=== PATIENT | female | born 1985 | race Caucasian/White ===

== ENCOUNTER 2018-03-02 08:19 | Emergency (ER) | payer OTHER ==
[2018-03-02 08:33] VITALS: TEMP 97.4; BMI 54.8
--- NOTE | 2018-03-02 08:35 | PDOC ---
Attending Attestation - Resident Resident Name: Garrison Calvo - ED Attending Attestation I have performed the following: I have examined & evaluated the patient, The case was reviewed & discussed with the resident, I agree w/resident's findings & plan, Exceptions are as noted Heart Score/ECG Review - ECG Impressions Comment:: EKG read 08:31- NSR 89 bpm, no acute ST/T changes
--- NOTE | 2018-03-02 08:35 | PDOC ---
History of Present Illness - General History Source: Patient Exam Limitations: No Limitations - History of Present Illness Initial Comments: CHIEF COMPLAINT: 32 y/o afebrile, morbidly obese female, with PMH poorly controlled DM2 and asthma c/o dizziness and tingling while at work with a sugar > 400. HISTORY OF PRESENT ILLNESS: The patient admits she takes her metformin but has a terrible diet. Her blood sugars are normally in the low 200s but last night while at work she began feeling dizzy and her sugar was >400. She also admits to her hands and feet feeling numb/tingling for the past few months and cannot correlate the feeling to spikes in sugar. She denies f/c, n/v/d, CP, SOB, cough , hemoptysis, abd pain, back pain, hematuria, dysuria. She does admit to frequent yeast infections. PCP is Dr. Escalante. Vital signs on arrival are within normal limits. REVIEW OF SYSTEMS: GENERAL/CONSTITUTIONAL: No fever/chills. No weakness. No weight change. HEAD, EYES, EARS, NOSE AND THROAT: No change in vision. No ear pain or discharge. No sore throat. CARDIOVASCULAR: No chest pain or shortness of breath. RESPIRATORY: No cough, wheezing, or hemoptysis. GASTROINTESTINAL: No abd pain, nausea, vomiting, diarrhea. GENITOURINARY: No dysuria, frequency, or change in urination. MUSCULOSKELETAL: No joint or muscle swelling or pain. No neck or back pain. SKIN: No rash or easy bruising. NEUROLOGIC: +dizziness. +tingling in extremities. No headache, loss of consciousness or loss of sensation. PHYSICAL EXAM: GENERAL: The patient is awake, alert, and fully oriented, in no acute distress. She is anxious and emotional, admitting she does not take care of herself. Otherwise appears well. HEAD: Normal with no signs of trauma. ENT: Pupils equal, round and reactive to light, extraocular movements intact, sclera anicteric, conjunctiva clear. Neck supple. LUNGS: Clear to auscultation bilaterally. Normal excursion. No respiratory distress or use of accessory muscles. CV: RRR, S1/S2, no MRG. Cap refill < 2 sec. ABDOMEN: Soft, non-distended, non-tender even to deep palpation, no hepatomegaly or splenomegaly, no masses. EXTREMITIES: Normal range of motion, no edema. NEUROLOGICAL: Normal speech, normal gait. CN II-XII grossly intact. Motor and sensory equal and intact b/l UEs and LEs. No saddle anesthesia. PSYCH: Normal mood, normal affect. SKIN: Warm, dry, normal turgor, no rashes or lesions noted. <Sharri Jarquin - Last Filed: 03/02/18 10:28> <Julia Espinosa - Last Filed: 03/03/18 11:26> - General Chief Complaint: Blood Sugar Problem Stated Complaint: SUAGR PROBLEM,RT SIDE PAIN Time Seen by Provider: 03/02/18 08:27 Past History - Past Medical History Asthma: Yes Diabetes: Yes - Reproductive History Cervical CA: No Dysfunctional Uterine Bleeding: No Ectopic : No Endometrial CA: No Polycystic Ovaries: No - Immunization History Td Vaccination: No - Suicide/Smoking/Psychosocial Hx Smoking Status: No Smoking History: Never smoked Have you smoked in the past 12 months: No Number of Cigarettes Smoked Daily: 0 Hx Alcohol Use: No Drug/Substance Use Hx: No Substance Use Type: None <Sharri Jarquin - Last Filed: 03/02/18 10:28> <Julia Espinosa - Last Filed: 03/03/18 11:26> - Past Medical History Allergies/Adverse Reactions: Allergies Allergy/AdvReac Type Severity Reaction Status Date / Time amoxicillin Allergy Verified 03/02/18 08:33 Penicillins Allergy Hives Verified 03/02/18 08:33 Sulfa (Sulfonamide Allergy Hives Verified 03/02/18 08:33 Antibiotics) Home Medications: Ambulatory Orders Metformin HCl [Metformin HCl ER] 500 mg PO BID 05/20/16 Nitrofurantoin Monohyd/M-Cryst [Macrobid -] 100 mg PO BID #14 capsule 03/02/18 *Physical Exam - Vital Signs Last Vital Signs Temp Pulse Resp BP Pulse Ox 97.4 F L 89 20 120/68 99 03/02/18 08:28 03/02/18 10:43 03/02/18 10:43 03/02/18 10:43 03/02/18 10:43 <Julia Espinosa - Last Filed: 03/03/18 11:26> Heart Score/ECG Review - ECG Intrepretation Comment:: Twelve-lead EKG was performed and reviewed by Dr. Espinosa. There is normal sinus rhythm with a normal rate. The axis is normal. The intervals are normal. There are no ST or T wave abnormalities. Impression: Normal twelve-lead EKG <Sharri Jarquin - Last Filed: 03/02/18 10:28> ED Treatment Course - LABORATORY CBC & Chemistry Diagram: 03/02/18 08:42 03/02/18 08:42 <Sharri Jarquin - Last Filed: 03/02/18 10:28> - LABORATORY CBC & Chemistry Diagram: 03/02/18 08:42 03/02/18 08:42 - ADDITIONAL ORDERS Additional order review: 03/02/18 08:42 Urine Culture - Final Urine - Urine Clean Catch Contaminated: Please Repeat 03/02/18 08:42 RBC 5.30 H MCV 82.0 MCHC 33.3 RDW 13.8 D MPV 7.5 Neutrophils % 68.4 Lymphocytes % 23.0 D Monocytes % 6.4 Eosinophils % 1.7 Basophils % 0.5 - Medications Given in the ED: ED Medications Discontinued Medications Generic Name Dose Route Start Last Admin Trade Name Freq PRN Reason Stop Dose Admin Sodium Chloride 1,000 mls @ 1,000 mls/hr 03/02/18 09:49 03/02/18 10:36 Normal Saline - IV 03/02/18 10:48 1,000 mls/hr ASDIR STA Administration <Julia Espinosa - Last Filed: 03/03/18 11:26> Medical Decision Making - Medical Decision Making A/P: 32 y/o female with dizziness overnight with sugar of 400. Plan is as follows: 1. EKG 2. Labs 3. UA/culture EKG normal Labs unremarkable UA with 3+ leuks. Will send rx for macrobid. Suspect patient's tingling in extremities is early neuropathy secondary to persistent elevated sugar levels >200. Discussed all results with the patient. She is no longer dizzy. Had a lengthy discussion about PCP follow up, diet improvement and general better control of her diabetes. Discussed all usp effects of elevated sugar levels. Instructed patient to return to the ER with any worsening or concerning symptoms. The patient verbalizes understanding of all instructions, has no further questions and is awaiting discharge. <Sharri Jarquin - Last Filed: 03/02/18 10:28> *DC/Admit/Observation/Transfer <Sharri Jarquin - Last Filed: 03/02/18 10:28> - Attestations Physician Attestion: I reviewed the case with the mid-level practitioner and agree with the mid- level practitioner's assessment, diagnosis and disposition. <JesúsRamaJulia - Last Filed: 03/03/18 11:26> Diagnosis at time of Disposition: Neuropathy, Elevated glucose level UTI (urinary tract infection) Qualifiers: Urinary tract infection type: acute cystitis Hematuria presence: without hematuria Qualified Code(s): N30.00 - Acute cystitis without hematuria - Discharge Dispostion Disposition: HOME Condition at time of disposition: Improved - Prescriptions Prescriptions: Nitrofurantoin Monohyd/M-Cryst [Macrobid -] 100 mg PO BID #14 capsule - Referrals Referrals: Mary Peters MD [Primary Care Provider] - (Call today) - Patient Instructions Printed Discharge Instructions: DI for Urinary Tract Infection (UTI), DI for Diabetic Neuropathy, DI for Hyperglycemia -- Adult Additional Instructions: Discharge instructions: -A prescription has been sent to your pharmacy -Please call your doctor today to schedule follow up appointment -Return to the ER immediately with any worsening or concerning symptoms - Post Discharge Activity Forms/Work/School Notes: Back to Work
[2018-03-02 09:20] LABS: URINE APPEARANCE CLOUDY; URINE BILIRUBIN NEGATIVE (<2.0 mg/dL); URINE COLOR LTYELLOW; URINE GLUCOSE (UA) NEGATIVE (NEGATIVE); URINE KETONE NEGATIVE (NEGATIVE); URINE NITRITE NEGATIVE (NEGATIVE); URINE PROTEIN NEGATIVE (NEGATIVE); URINE UROBILINOGEN NEGATIVE mg/dL (0.2-1.0)
[2018-03-02 09:24] LABS: URINE LEUK ESTERASE 3+ (NEGATIVE)
[2018-03-02 09:25] LABS: BASO % 0.5 % (0-2.0); EOS % 1.7 % (0-4.5); HEMATOCRIT 43.5 % (32.4-45.2); HEMOGLOBIN 14.5 GM/dL (10.7-15.3); MCH 27.3 pg (25.7-33.7); MCHC 33.3 g/dl (32.0-36.0); MEAN PLT VOLUME 7.5 fl (7.5-11.1); MONO % 6.4 % (3.8-10.2); NEUT % 68.4 % (42.8-82.8); PLATELET COUNT 338 K/MM3 (134-434); RDW 13.8 % (11.6-15.6); WHITE BLOOD COUNT 10.5 K/mm3 (4.0-10.0)
[2018-03-02 09:30] LABS: ALBUMIN 4.1 g/dl (3.4-5.0); ANION GAP 11 (8-16); BILIRUBIN,TOTAL 0.5 mg/dL (0.2-1.0); BLOOD UREA NITROGEN 12 mg/dL (7-18); CALCIUM 9.2 mg/dL (8.5-10.1); CHLORIDE 103 mmol/L (98-107); CO2 25 mmol/L (21-32); CREATININE 0.7 mg/dL (0.55-1.02); GLUCOSE,RANDOM 116 mg/dL (74-106); MAGNESIUM 2.1 mg/dL (1.8-2.4); POTASSIUM 4.3 mmol/L (3.5-5.1); SGOT/AST 20 U/L (15-37); SGPT/ALT 41 U/L (12-78); SODIUM 139 mmol/L (136-145); TOT PROT 7.9 g/dl (6.4-8.2)
[2018-03-02 09:33] LABS: ALK PHOS 99 U/L (45-117)
[2018-03-02 09:43] LABS: EPI CELLS MANY /HPF (FEW); URINE MUCUS RARE
[2018-03-02] MEDS ORDERED: SODIUM CHLORIDE 1,000 ML IV STA (09:49)
[2018-03-02 10:45] VITALS: BP 120/68; PULSE 89
--- NOTE | 2018-03-04 09:22 | EKG ---
Test Reason : Blood Pressure : / mmHG Vent. Rate : 089 BPM Atrial Rate : 089 BPM P-R Int : 156 ms QRS Dur : 086 ms QT Int : 392 ms P-R-T Axes : 014 029 010 degrees QTc Int : 476 ms NORMAL SINUS RHYTHM NORMAL ECG WHEN COMPARED WITH ECG OF 27-DEC-2010 09:16, NO SIGNIFICANT CHANGE WAS FOUND Confirmed by CHRISTOPHER XIAO MD ([id number]) on 03/04/2018 9:21:55 AM Referred By: Confirmed By:CHRISTOPHER XIAO MD
== END 2018-03-02 10:44 | disposition home or self-care (01) ==
LOC: JER 08:19
PROC: 3E0337Z Introduction of Electrolytic and Water Balance Substance into Peripheral Vein, Percutaneous Approach (ICD-10-PCS; principal; 2018-03-02)
DX: N30.00 Acute cystitis without hematuria (principal)
CPT/HCPCS: 36415; 80053; 81003; 81015; 82550; 83735; 84484; 84703; 85025; 87086; 93005; 93010; 96360; 99283-25; J7030

== ENCOUNTER 2018-03-30 19:31 | Emergency (ER) | payer OTHER ==
[2018-03-30 19:39] VITALS: TEMP 98.4; BMI 53.1
--- NOTE | 2018-03-30 19:39 | PDOC ---
Rapid Medical Evaluation Medical Evaluation: Allergies Allergy/AdvReac Type Severity Reaction Status Date / Time amoxicillin Allergy Verified 03/02/18 08:33 Penicillins Allergy Hives Verified 03/02/18 08:33 Sulfa (Sulfonamide Allergy Hives Verified 03/02/18 08:33 Antibiotics) 03/30/18 19:34 I have performed a brief in-person evaluation of the patient. The patient presents with a chief complaints of right sided chest pain and dizziness since today Also reports shortness of breath and elevated blood glucose Pertinent physical exam findings: NAD unlabored breathing heart s1s2 I have ordered the following: ekg, labs The patient will proceed to the ED for further evaluation. <Lyubov Dsouza - Last Filed: 03/30/18 19:34> Medical Evaluation: Allergies Allergy/AdvReac Type Severity Reaction Status Date / Time amoxicillin Allergy Verified 03/02/18 08:33 Penicillins Allergy Hives Verified 03/02/18 08:33 Sulfa (Sulfonamide Allergy Hives Verified 03/02/18 08:33 Antibiotics) Vital Signs Temp Pulse Resp BP Pulse Ox 98.4 F 89 18 119/70 99 03/30/18 19:34 03/30/18 20:52 03/30/18 20:52 03/30/18 20:52 03/30/18 20:52 <Eva Moss - Last Filed: 03/30/18 21:22> Chief Complaint: Chest Pain Time Seen by Provider: 03/30/18 19:34
[2018-03-30 20:03] LABS: BASO % 0.9 % (0-2.0); EOS % 2.4 % (0-4.5); HEMATOCRIT 40.3 % (32.4-45.2); HEMOGLOBIN 13.6 GM/dL (10.7-15.3); LYMPH % 30.3 % (8-40); MCH 27.8 pg (25.7-33.7); MCHC 33.8 g/dl (32.0-36.0); MEAN CELL VOLUME 82.2 fl (80-96); MEAN PLT VOLUME 7.7 fl (7.5-11.1); MONO % 8.3 % (3.8-10.2); NEUT % 58.1 % (42.8-82.8); PLATELET COUNT 318 K/MM3 (134-434); RBC 4.91 M/mm3 (3.60-5.2); RDW 13.8 % (11.6-15.6); WHITE BLOOD COUNT 9.6 K/mm3 (4.0-10.0)
[2018-03-30 20:11] LABS: PROTHROMBIN TIME (PATIENT) 11.3 SEC (9.7-13.0)
[2018-03-30 20:14] LABS: ACTIVATED PTT 31.3 SECONDS (26.9-34.4)
[2018-03-30 20:25] LABS: URINE APPEARANCE CLEAR; URINE BILIRUBIN NEGATIVE (<2.0 mg/dL); URINE COLOR STRAW; URINE GLUCOSE (UA) NEGATIVE (NEGATIVE); URINE KETONE NEGATIVE (NEGATIVE); URINE LEUK ESTERASE NEGATIVE (NEGATIVE); URINE NITRITE NEGATIVE (NEGATIVE); URINE PROTEIN NEGATIVE (NEGATIVE); URINE UROBILINOGEN NEGATIVE mg/dL (0.2-1.0)
[2018-03-30 20:33] LABS: ALBUMIN 3.7 g/dl (3.4-5.0); ALK PHOS 87 U/L (45-117); ANION GAP 5 (8-16); BILIRUBIN,TOTAL 0.3 mg/dL (0.2-1.0); BLOOD UREA NITROGEN 14 mg/dL (7-18); CALCIUM 8.6 mg/dL (8.5-10.1); CHLORIDE 107 mmol/L (98-107); CO2 28 mmol/L (21-32); CREATININE 0.6 mg/dL (0.55-1.02); GLUCOSE,RANDOM 124 mg/dL (74-106); SGOT/AST 18 U/L (15-37); SGPT/ALT 37 U/L (12-78); SODIUM 140 mmol/L (136-145); TOT PROT 7.2 g/dl (6.4-8.2)
[2018-03-30 20:52] VITALS: BP 119/70; PULSE 89
[2018-03-30] MEDS ORDERED: SODIUM CHLORIDE 0.9% 500 ML INFUS.BAG IV ONE ×2 (21:09→21:47)
--- NOTE | 2018-03-30 21:22 | PDOC ---
History of Present Illness - General Chief Complaint: Chest Pain Stated Complaint: FATIGUE Time Seen by Provider: 03/30/18 19:34 Past History - Past Medical History Allergies/Adverse Reactions: Allergies Allergy/AdvReac Type Severity Reaction Status Date / Time amoxicillin Allergy Verified 03/02/18 08:33 Penicillins Allergy Hives Verified 03/02/18 08:33 Sulfa (Sulfonamide Allergy Hives Verified 03/02/18 08:33 Antibiotics) Home Medications: Ambulatory Orders Metformin HCl [Metformin HCl ER] 500 mg PO BID 05/20/16 Nitrofurantoin Monohyd/M-Cryst [Macrobid -] 100 mg PO BID #14 capsule 03/02/18 Asthma: Yes COPD: No Diabetes: Yes - Reproductive History Cervical CA: No Dysfunctional Uterine Bleeding: No Ectopic : No Endometrial CA: No Polycystic Ovaries: No - Immunization History Td Vaccination: No - Suicide/Smoking/Psychosocial Hx Smoking Status: No Smoking History: Never smoked Have you smoked in the past 12 months: No Number of Cigarettes Smoked Daily: 0 Hx Alcohol Use: No Drug/Substance Use Hx: No Substance Use Type: None *Physical Exam - Vital Signs Last Vital Signs Temp Pulse Resp BP Pulse Ox 98.4 F 89 18 119/70 99 03/30/18 19:34 03/30/18 20:52 03/30/18 20:52 03/30/18 20:52 03/30/18 20:52 ED Treatment Course - LABORATORY CBC & Chemistry Diagram: 03/30/18 19:50 03/30/18 19:50 - ADDITIONAL ORDERS Additional order review: Laboratory Results 03/30/18 03/30/18 03/30/18 20:49 19:50 19:50 PT with INR 11.30 INR 1.00 PTT (Actin FS) 31.3 Sodium 140 Potassium 4.0 Chloride 107 Carbon Dioxide 28 Anion Gap 5 L BUN 14 Creatinine 0.6 Creat Clearance w eGFR > 60 POC Glucometer 137.00299 Random Glucose 124 H Calcium 8.6 Total Bilirubin 0.3 D AST 18 ALT 37 Alkaline Phosphatase 87 Total Protein 7.2 Albumin 3.7 03/30/18 03/30/18 20:49 19:50 RBC 4.91 MCV 82.2 MCHC 33.8 RDW 13.8 MPV 7.7 Neutrophils % 58.1 Lymphocytes % 30.3 D Monocytes % 8.3 Eosinophils % 2.4 Basophils % 0.9 POC Glucometer 137.62761 - Medications Given in the ED: ED Medications Discontinued Medications Generic Name Dose Route Start Last Admin Trade Name Vik PRN Reason Stop Dose Admin Sodium Chloride 1,000 ml 03/30/18 21:09 03/30/18 21:12 Normal Saline - IV 03/30/18 21:10 1,000 ml ONCE ONE Administration Medical Decision Making - Medical Decision Making 03/30/18 21:35 Pt comes with right sided chest pain. She states that she has had poorly controlled blood sugars despite compliance with her glucophage 500 BID. We discussed the possibility that she needs to up her dose of meds. Pt's blood sugar is controlled in the ER today. 137 FS and 124 blood test. 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 States that she recently had diarrhea and nausea. Likely with viral gastroenteritis. Viral illness likely bumped up her glc. Pt is also morbidly obese and we discussed the need for her to get on an exercise regimen and to eat more veggies and less cheese. Labs are normal. Exam normal. EKG normal. We will not send off cardiac enzymes, as her CP is right sided and atypical. Pt has no CP at this time. She was advised to return for cardiac enzymes if she develops chest pain. Pt states that she will follow with her PMD next week. *DC/Admit/Observation/Transfer Diagnosis at time of Disposition: Atypical chest pain, Diabetes mellitus out of control - Discharge Dispostion Disposition: HOME Condition at time of disposition: Stable Admit: No - Referrals - Patient Instructions Printed Discharge Instructions: Eating a Diet Low in Saturated Fat, Trans Fat, and Cholesterol, Do Raw Food (Living Food) Diets Promote Good Health?, DI for Atypical Chest Pain, Regular Moderate to Vigorous Exercise Associated With Decreased Risk of Par - Post Discharge Activity Forms/Work/School Notes: Back to Work
--- NOTE | 2018-03-30 22:05 | PDOC ---
*Physical Exam - Vital Signs Last Vital Signs Temp Pulse Resp BP Pulse Ox 98.4 F 89 18 119/70 99 03/30/18 19:34 03/30/18 20:52 03/30/18 20:52 03/30/18 20:52 03/30/18 20:52 - Physical Exam Comments: 03/30/18 22:05 Patient is a 32 year old female with a significant past medical history of poorly controlled DM2 and asthma who presents to the ED with complaints of general fatigue that began 1 hour prior to ED arrival. Patient reports experiencing general fatigue with associated dizziness, nausea, and diarrhea this evening at 6pm. She reports checking her blood sugar at 6pm stating it was found to be at 272 which she states worried her, prompting her to come into the ED for further evaluation. Patient reports blood sugar has been reportedly high for the last few weeks, stating she has recently been compliant with her diabetic medication. Patient reports experiencing intermittent chest pain as well as right sided pins and needles. Denies fever, chills. Denies vomiting. Denies constipation, dysuria, hematuria. Denies out of state travelling. Denies any other symptoms. 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 Lives with son, No smoking. No alcohol. No illicit drugs. Surgical history: None PMD: Dr. Matias ADULT ROS GENERAL/CONSTITUTIONAL: +Fatigue No fever or chills. HEAD, EYES, EARS, NOSE AND THROAT: No change in vision. No ear pain or discharge. No sore throat. CARDIOVASCULAR: +Chest pain. No shortness of breath. RESPIRATORY: No cough, wheezing, or hemoptysis. GASTROINTESTINAL: +Nausea. +diarrhea., No vomiting, or constipation. GENITOURINARY: No dysuria, frequency, or change in urination. MUSCULOSKELETAL: No joint or muscle swelling or pain. No neck or back pain. SKIN: No rash NEUROLOGIC: No headache, vertigo, loss of consciousness, or change in strength/ sensation. ENDOCRINE: No increased thirst. No abnormal weight change. HEMATOLOGIC/LYMPHATIC: No anemia, easy bleeding, or history of blood clots. ALLERGIC/IMMUNOLOGIC: No hives or skin allergy. ADULT EXAM GENERAL: Awake, alert, and fully oriented, in no acute distress HEAD: No signs of trauma EYES: PERRLA, EOMI, sclera anicteric, conjunctiva clear ENT: Auricles normal inspection, hearing grossly normal, nares patent, oropharynx clear without exudates. Moist mucosa NECK: Normal ROM, supple, no lymphadenopathy, JVD, or masses LUNGS: Breath sounds equal, clear to auscultation bilaterally. No wheezes, and no crackles HEART: Regular rate and rhythm, normal S1 and S2, no murmurs, rubs or gallops ABDOMEN: Soft, nontender, normoactive bowel sounds. No guarding, no rebound. No masses EXTREMITIES: Normal range of motion, no edema. No clubbing or cyanosis. No cords, erythema, or tenderness NEUROLOGICAL: Cranial nerves II through XII grossly intact. Normal speech, normal gait SKIN: Warm, Dry, normal turgor, no rashes or lesions noted. <Edvin Davis - Last Filed: 03/30/18 22:06> - Vital Signs Last Vital Signs Temp Pulse Resp BP Pulse Ox 98.4 F 89 18 119/70 99 03/30/18 19:34 03/30/18 20:52 03/30/18 20:52 03/30/18 20:52 03/30/18 20:52 <Eva Moss - Last Filed: 03/30/18 23:41> Heart Score/ECG Review - ECG Intrepretation Comment:: 03/30/18 22:06 Completed @19:38:48 normal Sinus rhythm Normal ECG vent. Rate 92 bpm NM interval 164 ms QRS duraion 82 ms <Edvin Davis - Last Filed: 03/30/18 22:06> ED Treatment Course - LABORATORY CBC & Chemistry Diagram: 03/30/18 19:50 03/30/18 19:50 - ADDITIONAL ORDERS Additional order review: Laboratory Results 03/30/18 03/30/18 03/30/18 20:49 20:17 19:50 PT with INR INR PTT (Actin FS) Sodium 140 Potassium 4.0 Chloride 107 Carbon Dioxide 28 Anion Gap 5 L BUN 14 Creatinine 0.6 Creat Clearance w eGFR > 60 POC Glucometer 137.38718 Random Glucose 124 H Calcium 8.6 Total Bilirubin 0.3 D AST 18 ALT 37 Alkaline Phosphatase 87 Total Protein 7.2 Albumin 3.7 Urine Color Straw Urine Appearance Clear Urine pH 6.0 Ur Specific [place] 1.010 Urine Protein Negative Urine Glucose (UA) Negative Urine Ketones Negative Urine Blood Negative Urine Nitrite Negative Urine Bilirubin Negative Urine Urobilinogen Negative Ur Leukocyte Esterase Negative 03/30/18 19:50 PT with INR 11.30 INR 1.00 PTT (Actin FS) 31.3 Sodium Potassium Chloride Carbon Dioxide Anion Gap BUN Creatinine Creat Clearance w eGFR POC Glucometer Random Glucose Calcium Total Bilirubin AST ALT Alkaline Phosphatase Total Protein Albumin Urine Color Urine Appearance Urine pH Ur Specific [place] Urine Protein Urine Glucose (UA) Urine Ketones Urine Blood Urine Nitrite Urine Bilirubin Urine Urobilinogen Ur Leukocyte Esterase 03/30/18 03/30/18 20:49 19:50 RBC 4.91 MCV 82.2 MCHC 33.8 RDW 13.8 MPV 7.7 Neutrophils % 58.1 Lymphocytes % 30.3 D Monocytes % 8.3 Eosinophils % 2.4 Basophils % 0.9 POC Glucometer 137.16897 - Medications Given in the ED: ED Medications Discontinued Medications Generic Name Dose Route Start Last Admin Trade Name Freq PRN Reason Stop Dose Admin Sodium Chloride 1,000 ml 03/30/18 21:09 03/30/18 21:12 Normal Saline - IV 03/30/18 21:10 1,000 ml ONCE ONE Administration Sodium Chloride 1,000 ml 03/30/18 21:47 03/30/18 21:57 Normal Saline - IV 03/30/18 21:48 Not Given ONCE ONE <Edvin Davis - Last Filed: 03/30/18 22:06> - LABORATORY CBC & Chemistry Diagram: 03/30/18 19:50 03/30/18 19:50 - ADDITIONAL ORDERS Additional order review: Laboratory Results 03/30/18 03/30/18 03/30/18 20:49 20:17 19:50 PT with INR INR PTT (Actin FS) Sodium 140 Potassium 4.0 Chloride 107 Carbon Dioxide 28 Anion Gap 5 L BUN 14 Creatinine 0.6 Creat Clearance w eGFR > 60 POC Glucometer 137.56474 Random Glucose 124 H Calcium 8.6 Total Bilirubin 0.3 D AST 18 ALT 37 Alkaline Phosphatase 87 Total Protein 7.2 Albumin 3.7 Urine Color Straw Urine Appearance Clear Urine pH 6.0 Ur Specific [place] 1.010 Urine Protein Negative Urine Glucose (UA) Negative Urine Ketones Negative Urine Blood Negative Urine Nitrite Negative Urine Bilirubin Negative Urine Urobilinogen Negative Ur Leukocyte Esterase Negative 03/30/18 19:50 PT with INR 11.30 INR 1.00 PTT (Actin FS) 31.3 Sodium Potassium Chloride Carbon Dioxide Anion Gap BUN Creatinine Creat Clearance w eGFR POC Glucometer Random Glucose Calcium Total Bilirubin AST ALT Alkaline Phosphatase Total Protein Albumin Urine Color Urine Appearance Urine pH Ur Specific [place] Urine Protein Urine Glucose (UA) Urine Ketones Urine Blood Urine Nitrite Urine Bilirubin Urine Urobilinogen Ur Leukocyte Esterase 03/30/18 03/30/18 20:49 19:50 RBC 4.91 MCV 82.2 MCHC 33.8 RDW 13.8 MPV 7.7 Neutrophils % 58.1 Lymphocytes % 30.3 D Monocytes % 8.3 Eosinophils % 2.4 Basophils % 0.9 POC Glucometer 137.18773 - Medications Given in the ED: ED Medications Discontinued Medications Generic Name Dose Route Start Last Admin Trade Name Freq PRN Reason Stop Dose Admin Sodium Chloride 1,000 ml 03/30/18 21:09 03/30/18 21:12 Normal Saline - IV 03/30/18 21:10 1,000 ml ONCE ONE Administration <Eva Moss - Last Filed: 03/30/18 23:41> Medical Decision Making - Medical Decision Making 03/30/18 22:31 Pt never left, as she was anxious and states that she still feels dizzy even though she refused NSS earlier, she is now agreeing to have 1L NSS. I will send off a cardiac panel at this time also. Pt will be reevaluated after the bolus. 03/30/18 23:41 Pt is feeling better with hydration and cardiac enzyme is normal. <Eva Moss - Last Filed: 03/30/18 23:41> *DC/Admit/Observation/Transfer - Attestations Scribe Attestion: 03/30/18 22:06 Documentation prepared by Edvin Davis, acting as medical case worker for Eva Moss MD/. <Edvin Davis - Last Filed: 03/30/18 22:06> <Eva Moss - Last Filed: 03/30/18 23:41> Diagnosis at time of Disposition: Atypical chest pain, Diabetes mellitus out of control - Discharge Dispostion Disposition: HOME Condition at time of disposition: Stable - Referrals - Patient Instructions Printed Discharge Instructions: Eating a Diet Low in Saturated Fat, Trans Fat, and Cholesterol, Do Raw Food (Living Food) Diets Promote Good Health?, DI for Atypical Chest Pain, Regular Moderate to Vigorous Exercise Associated With Decreased Risk of Par - Post Discharge Activity Forms/Work/School Notes: Back to Work
[2018-03-31 00:17] LABS: HCG,QUALITATIVE URINE NEGATIVE
--- NOTE | 2018-03-31 14:35 | EKG ---
Test Reason : Blood Pressure : / mmHG Vent. Rate : 092 BPM Atrial Rate : 092 BPM P-R Int : 164 ms QRS Dur : 082 ms QT Int : 376 ms P-R-T Axes : 018 018 016 degrees QTc Int : 464 ms NORMAL SINUS RHYTHM NORMAL ECG WHEN COMPARED WITH ECG OF 02-MAR-2018 08:26, NO SIGNIFICANT CHANGE WAS FOUND Confirmed by MD Buchanan Daniel ([id number]) on 03/31/2018 2:34:47 PM Referred By: Confirmed By:Elias Buchanan MD
== END 2018-03-31 00:06 | disposition home or self-care (01) ==
LOC: JER 19:31
PROC: 3E0337Z Introduction of Electrolytic and Water Balance Substance into Peripheral Vein, Percutaneous Approach (ICD-10-PCS; principal; 2018-03-30)
DX: E11.65 Type 2 diabetes mellitus with hyperglycemia (principal); Z79.84 Long term (current) use of oral hypoglycemic drugs; R07.89 Other chest pain; E66.01 Morbid (severe) obesity due to excess calories; Z68.43 Body mass index [BMI] 50.0-59.9, adult
CPT/HCPCS: 36415; 80053; 81003; 82550; 82962; 84484; 84703; 85025; 85610; 85730; 93005; 93010; 96374; 99283-25

== ENCOUNTER 2018-03-31 13:00 | Emergency (ER) | payer OTHER ==
[2018-03-31 13:10] VITALS: BMI 55.7
[2018-03-31] MEDS ORDERED: HEMOQUE TEST 1 EACH EACH ONE (13:44)
[2018-03-31] MEDS ORDERED: ACETAMINOPHEN 500 MG TABLET (FP) PO ONE (13:48)
[2018-03-31 14:04] LABS: BASO % 0.8 % (0-2.0); EOS % 2.1 % (0-4.5); HEMATOCRIT 41.8 % (32.4-45.2); HEMOGLOBIN 14.1 GM/dL (10.7-15.3); LYMPH % 27.8 % (8-40); MCH 27.7 pg (25.7-33.7); MCHC 33.7 g/dl (32.0-36.0); MEAN CELL VOLUME 82.3 fl (80-96); MEAN PLT VOLUME 7.4 fl (7.5-11.1); MONO % 7.5 % (3.8-10.2); NEUT % 61.8 % (42.8-82.8); PLATELET COUNT 325 K/MM3 (134-434); RBC 5.08 M/mm3 (3.60-5.2); WHITE BLOOD COUNT 9.1 K/mm3 (4.0-10.0)
[2018-03-31] MEDS ORDERED: ACETAMINOPHEN 325 MG TABLET (FP) ONE (14:07)
[2018-03-31 14:09] LABS: VENOUS PC02 45.8 mmHg (38-52); VENOUS PH 7.38 (7.32-7.42)
[2018-03-31 14:10] LABS: VENOUS PO2 39.9 mmHg (28-48)
[2018-03-31 14:29] LABS: ALBUMIN 4.1 g/dl (3.4-5.0); ANION GAP 8 (8-16); BILIRUBIN,TOTAL 0.5 mg/dL (0.2-1.0); BLOOD UREA NITROGEN 12 mg/dL (7-18); CHLORIDE 105 mmol/L (98-107); CO2 27 mmol/L (21-32); CREATININE 0.6 mg/dL (0.55-1.02); GLUCOSE,RANDOM 90 mg/dL (74-106); POTASSIUM 4.1 mmol/L (3.5-5.1); SGOT/AST 22 U/L (15-37); SGPT/ALT 41 U/L (12-78); SODIUM 140 mmol/L (136-145); TOT PROT 7.7 g/dl (6.4-8.2)
[2018-03-31 14:30] LABS: ALK PHOS 89 U/L (45-117)
--- NOTE | 2018-03-31 14:31 | EKG ---
Test Reason : Blood Pressure : / mmHG Vent. Rate : 088 BPM Atrial Rate : 088 BPM P-R Int : 166 ms QRS Dur : 084 ms QT Int : 384 ms P-R-T Axes : 018 027 014 degrees QTc Int : 464 ms NORMAL SINUS RHYTHM NORMAL ECG WHEN COMPARED WITH ECG OF 30-MAR-2018 19:38, NO SIGNIFICANT CHANGE WAS FOUND Confirmed by MD Buchanan Daniel ([id number]) on 03/31/2018 2:30:57 PM Referred By: Confirmed By:Elias Buchanan MD
[2018-03-31 15:14] LABS: ACETONE SERUM NEGATIVE (NEGATIVE)
--- NOTE | 2018-03-31 16:22 | PDOC ---
History of Present Illness - General Chief Complaint: Blood Sugar Problem Stated Complaint: DIZZINESS, CHEST PRESSURE Time Seen by Provider: 03/31/18 13:34 History Source: Patient Exam Limitations: No Limitations - History of Present Illness Initial Comments: 03/31/18 16:17 32 yr old female with history of diabetes presents to the ED with complaints of chest discomfort worsened with movement and deep breathing. Patient states symptoms began a few days ago which prompted her to come to the ER yesterday and was told to follow up with her primary care doctor as this was not related to her heart. Patient also states her sugar this morning was 206 despite eating nothing and taking her medication. Patient has no complaints of fever, chills, urinary complaints, polyuria polyphasia or polydipsia. Timing/Duration: intermittent Severity: moderate Associated Symptoms: reports: chest pain Past History - Travel Traveled outside of the country in the last 30 days: No - Past Medical History Allergies/Adverse Reactions: Allergies Allergy/AdvReac Type Severity Reaction Status Date / Time amoxicillin Allergy Verified 03/31/18 13:10 Penicillins Allergy Hives Verified 03/31/18 13:10 Sulfa (Sulfonamide Allergy Hives Verified 03/31/18 13:10 Antibiotics) Home Medications: Ambulatory Orders Metformin HCl [Metformin HCl ER] 500 mg PO BID 05/20/16 Nitrofurantoin Monohyd/M-Cryst [Macrobid -] 100 mg PO BID #14 capsule 03/02/18 Asthma: Yes COPD: No Diabetes: Yes - Reproductive History Cervical CA: No Dysfunctional Uterine Bleeding: No Ectopic : No Endometrial CA: No Polycystic Ovaries: No - Immunization History Td Vaccination: No - Suicide/Smoking/Psychosocial Hx Smoking Status: No Smoking History: Never smoked Have you smoked in the past 12 months: No Number of Cigarettes Smoked Daily: 0 Hx Alcohol Use: No Drug/Substance Use Hx: No Substance Use Type: None Patient Lives Alone: No Review of Systems - Review of Systems Able to Perform ROS?: No Constitutional: No: Symptoms Reported HEENTM: No: Symptoms Reported Respiratory: No: Symptoms reported Cardiac (ROS): Yes: Chest Pain ABD/GI: No: Symptoms Reported : No: Symptoms Reported Musculoskeletal: No: Symptoms Reported Integumentary: No: Symptoms Reported Neurological: No: Symptoms reported Hematologic/Lymphatic: No: Symptoms Reported *Physical Exam - Vital Signs Last Vital Signs Temp Pulse Resp BP Pulse Ox 98 F 90 18 127/70 99 03/31/18 13:05 03/31/18 13:05 03/31/18 13:05 03/31/18 13:05 03/31/18 13:05 - Physical Exam General Appearance: Yes: Nourished, Appropriately Dressed. No: Apparent Distress HEENT: positive: EOMI, NITO, TMs Normal, Pharynx Normal. negative: Pale Conjunctivae Neck: positive: Normal Thyroid, Supple Respiratory/Chest: positive: Chest Tender (mid sternal and laterally bilateral) , Lungs Clear, Normal Breath Sounds. negative: Respiratory Distress, Accessory Muscle Use Cardiovascular: positive: Regular Rhythm, Regular Rate. negative: Murmur Gastrointestinal/Abdominal: positive: Soft. negative: Tenderness Extremity: positive: Normal Capillary Refill. negative: Pedal Edema Integumentary: positive: Normal Color, Warm, Moist Neurologic: positive: Motor Strength 5/5 (ambulatory) Heart Score/ECG Review - Electrocardiogram EKG: Normal - Age Age: </= 45 - Risk Factors Risk Factors Heart Score: Yes Hx Hypercholesterolemia, Yes Hx Diabetes Based on the list above the patient has:: 1-2 risk factors - ECG Intrepretation Rhythm: Regular Rhythm (Rate 88. Normal sinus rhythm. Intervals are regular. No ST elevation or depression.) ED Treatment Course - LABORATORY CBC & Chemistry Diagram: 03/31/18 13:55 03/31/18 13:57 - ADDITIONAL ORDERS Additional order review: Laboratory Results 03/31/18 03/31/18 03/31/18 13:57 13:57 13:55 VBG pH 7.38 POC VBG pCO2 45.8 POC VBG pO2 39.9 Mixed VBG HCO3 26.7 H Sodium 140 Potassium 4.1 Chloride 105 Carbon Dioxide 27 Anion Gap 8 BUN 12 Creatinine 0.6 Creat Clearance w eGFR > 60 POC Glucometer Random Glucose 90 Calcium 9.0 Total Bilirubin 0.5 D AST 22 ALT 41 Alkaline Phosphatase 89 Creatine Kinase 91 Troponin I < 0.02 Total Protein 7.7 Albumin 4.1 Acetone, Qual Negative L 03/31/18 13:52 VBG pH POC VBG pCO2 POC VBG pO2 Mixed VBG HCO3 Sodium Potassium Chloride Carbon Dioxide Anion Gap BUN Creatinine Creat Clearance w eGFR POC Glucometer 93.78906 Random Glucose Calcium Total Bilirubin AST ALT Alkaline Phosphatase Creatine Kinase Troponin I Total Protein Albumin Acetone, Qual 03/31/18 03/31/18 13:55 13:52 RBC 5.08 MCV 82.3 MCHC 33.7 RDW 14.0 MPV 7.4 L Neutrophils % 61.8 Lymphocytes % 27.8 Monocytes % 7.5 Eosinophils % 2.1 Basophils % 0.8 POC Glucometer 93.04076 - Medications Given in the ED: ED Medications Discontinued Medications Generic Name Dose Route Start Last Admin Trade Name Vik PRN Reason Stop Dose Admin Acetaminophen 975 mg 03/31/18 13:48 03/31/18 14:09 Tylenol - PO 03/31/18 13:49 975 mg ONCE ONE Administration Medical Decision Making - Medical Decision Making 03/31/18 14:25 Patient with intermittent bilateral chest pain worse with movement and deep breathing. Patient with history of diabetes is concerned why her sugar has been elevated. Patient tried contacting her PCP to discuss elevated sugar but states was told to come to the ER for further evaluation. Patient had reproducible chest pain concerning for costochondritis and musculoskeletal strain. Patient will have labs including one set of troponins done secondary to continual pain and previous visit yesterday. 03/31/18 16:26 Laboratory Tests 03/31/18 03/31/18 03/31/18 13:52 13:55 13:55 WBC 9.1 Hgb 14.1 Hct 41.8 Plt Count 325 Neutrophils % 61.8 Mixed VBG HCO3 26.7 H Sodium Potassium Chloride Carbon Dioxide BUN Creatinine POC Glucometer 93.47926 Random Glucose Calcium Total Bilirubin AST ALT Alkaline Phosphatase Troponin I Acetone, Qual 03/31/18 03/31/18 13:57 13:57 WBC Hgb Hct Plt Count Neutrophils % Mixed VBG HCO3 Sodium 140 Potassium 4.1 Chloride 105 Carbon Dioxide 27 BUN 12 Creatinine 0.6 POC Glucometer Random Glucose 90 Calcium 9.0 Total Bilirubin 0.5 D AST 22 ALT 41 Alkaline Phosphatase 89 Troponin I < 0.02 Acetone, Qual Negative L Pt asymptomatic after receiving Tylenol. Patient will be discharged home with recommendations to continue Tylenol and stop her primary care doctor regards to subjective *DC/Admit/Observation/Transfer Diagnosis at time of Disposition: Costochondritis - Discharge Dispostion Disposition: HOME Condition at time of disposition: Improved - Referrals Referrals: Huber Matias MD [Primary Care Provider] - - Patient Instructions Printed Discharge Instructions: DI for Costochondritis Additional Instructions: At this time I recommend taking Tylenol 975 every 6-8 hours for discomfort for the next few days. Please drink plenty of fluids in May apply warm compresses the secondary also to alleviate discomfort. In regards to elevated glucose patient is to follow up with her primary care physician. - Post Discharge Activity
[2018-03-31 17:11] VITALS: BP 125/68; PULSE 75; TEMP 98.3
== END 2018-03-31 16:43 | disposition home or self-care (01) ==
LOC: JER 13:00
DX: M94.0 Chondrocostal junction syndrome [Tietze] (principal)
CPT/HCPCS: 36415; 80053; 82009; 82550; 82803; 82962; 84484; 85025; 93005; 93010; 99284-25

== ENCOUNTER 2018-07-28 00:58 | Emergency (ER) | payer OTHER ==
--- NOTE | 2018-07-28 01:22 | PDOC ---
History of Present Illness - General History Source: Patient Exam Limitations: No Limitations - History of Present Illness Initial Comments: 07/28/18 02:13 The patient is a 32 year old female, with a significant past medical history of Asthma, HLD, Diabetes (not on medications), Morbid obesity, who presents to the emergency department with, 2 weeks of shortness of breath. As per patient, she attempted using her at home rescue inhaler, without relief. She also endorses an onset of burning chest pain, back pain, headache, and numbness. The patient was seen in [facility], [facility] ER, and [facility] ER multiple times for similar symptoms. She reports that [facility] diagnosed her with anxiety and has an upcoming appointment with a psychiatry. She denies recent fevers, chills, or dizziness. She denies recent nausea, vomit , diarrhea or constipation. She denies recent dysuria, frequency, urgency or hematuria. Allergies: Amoxicillin, Penicillins, Sulfa Past surgical history: None reported. Social history: Nonsmoker. Denies EtOH use and recreational drug use. Primary Care Physician: Dr. Huber Matias <Ana Urena - Last Filed: 07/28/18 02:39> <Eva Moss - Last Filed: 07/28/18 19:28> - General Stated Complaint: ABDOMINAL & CHEST PAINS Time Seen by Provider: 07/28/18 01:22 Past History <Ana Urena - Last Filed: 07/28/18 02:39> - Past Medical History Asthma: Yes COPD: No DVT: No Diabetes: Yes Hypercholesterolemia: Yes - Reproductive History Cervical CA: No Dysfunctional Uterine Bleeding: No Ectopic : No Endometrial CA: No Polycystic Ovaries: No - Immunization History Td Vaccination: No - Suicide/Smoking/Psychosocial Hx Smoking Status: No Smoking History: Never smoked Have you smoked in the past 12 months: No Number of Cigarettes Smoked Daily: 0 Hx Alcohol Use: No Drug/Substance Use Hx: No Substance Use Type: None <Eva Moss - Last Filed: 07/28/18 19:28> - Past Medical History Allergies/Adverse Reactions: Allergies Allergy/AdvReac Type Severity Reaction Status Date / Time amoxicillin Allergy Verified 07/28/18 01:38 Penicillins Allergy Hives Verified 07/28/18 01:38 Sulfa (Sulfonamide Allergy Hives Verified 07/28/18 01:38 Antibiotics) Home Medications: Ambulatory Orders Albuterol 0.083% Nebulizer Evelin [Ventolin 0.083% Nebulizer Soln -] 1 neb NEB Q4H PRN #30 vial 07/17/18 Methylprednisolone [Medrol Dose Milo] 4 mg PO ASDIR #21 tablet 07/17/18 Ipratropium 0.02% Nebulizer [Atrovent 0.02% Nebulizer -] 1 amp NEB QID PRN #1 vial 07/19/18 Loratadine 10 mg PO DAILY #10 capsule 07/19/18 Pantoprazole Sodium [Protonix -] 40 mg PO DAILY #7 tablet.ec 07/19/18 Review of Systems - Review of Systems Able to Perform ROS?: Yes Comments:: 07/28/18 02:14 GENERAL/CONSTITUTIONAL: No fever or chills. No weakness. HEAD, EYES, EARS, NOSE AND THROAT: No change in vision. No ear pain or discharge. No sore throat. +CARDIOVASCULAR: Chest pain. +RESPIRATORY: SOB. No cough, wheezing, or hemoptysis. GASTROINTESTINAL: No nausea, vomiting, diarrhea or constipation. GENITOURINARY: No dysuria, frequency, or change in urination. MUSCULOSKELETAL: No joint or muscle swelling or pain. No neck or back pain. SKIN: No rash +NEUROLOGIC: Headache. Numbness. No vertigo, loss of consciousness, or change in strength/sensation. ENDOCRINE: No increased thirst. No abnormal weight change. HEMATOLOGIC/LYMPHATIC: No anemia, easy bleeding, or history of blood clots. ALLERGIC/IMMUNOLOGIC: No hives or skin allergy. All Other Systems: Reviewed and Negative <Ana Urena - Last Filed: 07/28/18 02:39> *Physical Exam - Vital Signs Last Vital Signs Temp Pulse Resp BP Pulse Ox 97.4 F L 91 H 19 118/84 100 07/28/18 01:05 07/28/18 01:05 07/28/18 01:05 07/28/18 01:05 07/28/18 01:05 - Physical Exam Comments: 07/28/18 02:39 GENERAL: Awake, alert, and fully oriented, in no acute distress HEAD: No signs of trauma EYES: PERRLA, EOMI, sclera anicteric, conjunctiva clear ENT: Auricles normal inspection, hearing grossly normal, nares patent, oropharynx clear without exudates. Moist mucosa NECK: Normal ROM, supple, no lymphadenopathy, JVD, or masses LUNGS: Breath sounds equal, clear to auscultation bilaterally. No wheezes, and no crackles HEART: Regular rate and rhythm, normal S1 and S2, no murmurs, rubs or gallops ABDOMEN: Soft, nontender, normoactive bowel sounds. No guarding, no rebound. No masses EXTREMITIES: Normal range of motion, no edema. No clubbing or cyanosis. No cords, erythema, or tenderness NEUROLOGICAL: Cranial nerves II through XII grossly intact. Normal speech, normal gait SKIN: Warm, Dry, normal turgor, no rashes or lesions noted. <Ana Urena - Last Filed: 07/28/18 02:39> ED Treatment Course - LABORATORY CBC & Chemistry Diagram: 07/28/18 01:58 07/28/18 01:58 - ADDITIONAL ORDERS Additional order review: Laboratory Results 07/28/18 01:59 Urine HCG, Qual Negative <Ana Urena - Last Filed: 07/28/18 02:39> - LABORATORY CBC & Chemistry Diagram: 07/28/18 01:58 07/28/18 01:58 <Eva Moss - Last Filed: 07/28/18 19:28> Medical Decision Making - Medical Decision Making 07/28/18 02:24 CBC normal HCG negative Chem pending CXR pending 07/28/18 19:27 Pt with GERD and reflux. She has a normal EKG; CXR was cancelled, as she recently had a CT chest. Pt will be discharged. She has an outpatient GI f/u appy on . <Eva Moss - Last Filed: 07/28/18 19:28> *DC/Admit/Observation/Transfer - Attestations Scribe Attestion: 07/28/18 02:15 Documentation prepared by Ana Urena, acting as medical record coder for Eva Moss MD. <Ana Urena - Last Filed: 07/28/18 02:39> - Discharge Dispostion Decision to Admit order: No <Eva Moss - Last Filed: 07/28/18 19:28> Diagnosis at time of Disposition: Gastritis, Chest pain due to GERD - Discharge Dispostion Disposition: HOME Condition at time of disposition: Stable - Referrals Referrals: Huber Matias MD [Primary Care Provider] - - Patient Instructions Printed Discharge Instructions: DI for Gastritis, GERD Diet
[2018-07-28] MEDS ORDERED: SODIUM CHLORIDE 0.9% 500 ML INFUS.BAG IV ONE (01:38)
[2018-07-28 01:45] VITALS: BP 118/84; PULSE 91; TEMP 97.4; BMI 49.6
[2018-07-28 02:10] LABS: BASO % 0.9 % (0-2.0); EOS % 1.8 % (0-4.5); HEMATOCRIT 41.9 % (32.4-45.2); LYMPH % 29.6 % (8-40); MCH 27.4 pg (25.7-33.7); MCHC 33.4 g/dl (32.0-36.0); MEAN PLT VOLUME 7.9 fl (7.5-11.1); MONO % 9.6 % (3.8-10.2); NEUT % 58.1 % (42.8-82.8); PLATELET COUNT 274 K/MM3 (134-434); RBC 5.11 M/mm3 (3.60-5.2); RDW 14.1 % (11.6-15.6)
[2018-07-28] MEDS ORDERED: MAG HYDROX/AL HYDROX/SIMETH 30 ML UNIT-DOSE CUP PO ONE (02:38)
[2018-07-28] MEDS ORDERED: DICYCLOMINE HCL 20 MG TABLET PO ONE (02:38)
[2018-07-28 02:40] LABS: ALBUMIN 3.9 g/dl (3.4-5.0); ANION GAP 6 MMOL/L (8-16); BILIRUBIN,TOTAL 0.4 mg/dL (0.2-1.0); BLOOD UREA NITROGEN 10 mg/dL (7-18); CALCIUM 8.7 mg/dL (8.5-10.1); CHLORIDE 105 mmol/L (98-107); CO2 29 mmol/L (21-32); CREATININE 0.7 mg/dL (0.55-1.02); GLUCOSE,RANDOM 108 mg/dL (74-106); POTASSIUM 3.7 mmol/L (3.5-5.1); SGOT/AST 15 U/L (15-37); SGPT/ALT 47 U/L (12-78); SODIUM 140 mmol/L (136-145); TOT PROT 7.3 g/dl (6.4-8.2)
[2018-07-28 02:41] LABS: ALK PHOS 83 U/L (45-117)
[2018-07-28] MEDS ORDERED: DICYCLOMINE HCL 10 MG CAPSULE PO ONE (03:45)
--- NOTE | 2018-07-30 14:05 | EKG ---
Test Reason : Blood Pressure : / mmHG Vent. Rate : 079 BPM Atrial Rate : 079 BPM P-R Int : 172 ms QRS Dur : 088 ms QT Int : 408 ms P-R-T Axes : 029 008 009 degrees QTc Int : 467 ms NORMAL SINUS RHYTHM NORMAL ECG WHEN COMPARED WITH ECG OF 16-JUL-2018 18:50, NONSPECIFIC T WAVE ABNORMALITY NOW EVIDENT IN ANTERIOR LEADS Confirmed by KRISTOPHER PARR MD ([id number]) on 07/30/2018 2:05:17 PM Referred By: Confirmed By:KRISTOPHER PARR MD
== END 2018-07-28 03:35 | disposition home or self-care (01) ==
LOC: JER 00:58
DX: K21.9 Gastro-esophageal reflux disease without esophagitis (principal); K29.70 Gastritis, unspecified, without bleeding; R07.89 Other chest pain; J45.909 Unspecified asthma, uncomplicated; E11.9 Type 2 diabetes mellitus without complications; E78.5 Hyperlipidemia, unspecified; F41.9 Anxiety disorder, unspecified; E66.01 Morbid (severe) obesity due to excess calories; Z68.42 Body mass index [BMI] 45.0-49.9, adult
CPT/HCPCS: 36415; 80053; 82550; 84484; 84703; 85025; 93005; 93010; 99282-25

== ENCOUNTER 2018-11-08 09:31 | Emergency (ER) | payer OTHER ==
[2018-11-08 09:41] VITALS: BP 104/70; PULSE 97; TEMP 98.4; BMI 48.2
[2018-11-08] MEDS ORDERED: SODIUM CHLORIDE 1,000 ML IV STA (10:19)
[2018-11-08 10:58] LABS: URINE APPEARANCE SLCLOUDY; URINE BILIRUBIN NEGATIVE (<2.0 mg/dL); URINE COLOR LTYELLOW; URINE GLUCOSE (UA) NEGATIVE (NEGATIVE); URINE KETONE NEGATIVE (NEGATIVE); URINE LEUK ESTERASE NEGATIVE (NEGATIVE); URINE NITRITE NEGATIVE (NEGATIVE); URINE PROTEIN NEGATIVE (NEGATIVE); URINE UROBILINOGEN NEGATIVE mg/dL (0.2-1.0)
[2018-11-08 11:08] LABS: BASO % 0.8 % (0-2.0); EOS % 1.3 % (0-4.5); HEMOGLOBIN 14.3 GM/dL (10.7-15.3); LYMPH % 21.2 % (8-40); MCH 28.4 pg (25.7-33.7); MCHC 34.9 g/dl (32.0-36.0); MEAN CELL VOLUME 81.3 fl (80-96); MEAN PLT VOLUME 7.6 fl (7.5-11.1); MONO % 7.3 % (3.8-10.2); NEUT % 69.4 % (42.8-82.8); PLATELET COUNT 314 K/MM3 (134-434); RBC 5.05 M/mm3 (3.60-5.2); RDW 14.2 % (11.6-15.6); WHITE BLOOD COUNT 10.3 K/mm3 (4.0-10.0)
--- NOTE | 2018-11-08 11:15 | PDOC ---
History of Present Illness - General Chief Complaint: Vaginal Bleeding Stated Complaint: 8 WEEKS Vaginal Bleeding Time Seen by Provider: 11/08/18 10:16 - History of Present Illness Initial Comments: Leticia Varghese is a 33yo woman with a PMH of HTN, asthma, DM, and morbid obesity, currently 8.5wks by US, who presents to the ED with vaginal spotting that started this morning. She reports that she noticed some blood staining on her underwear this morning and has seen blood whenever she uses the bathroom today. She denies any abdominal or back pain, has not had any dysuria, and reports that the has gone well otherwise. This is the first vaginal spotting she has had during her . Past History - Past Medical History Allergies/Adverse Reactions: Allergies Allergy/AdvReac Type Severity Reaction Status Date / Time amoxicillin Allergy Verified 07/28/18 01:38 Penicillins Allergy Hives Verified 07/28/18 01:38 Sulfa (Sulfonamide Allergy Hives Verified 07/28/18 01:38 Antibiotics) Home Medications: Ambulatory Orders Ferrous Sulfate 325 mg PO DAILY 11/08/18 Metformin HCl [Metformin HCl ER] 500 mg PO BID 11/08/18 No122/Iron/Folic Acid [ Multi Tablet] 1 each PO DAILY 11/08/18 Asthma: Yes COPD: No DVT: No Diabetes: Yes Hypercholesterolemia: Yes - Reproductive History Is Patient Now?: Yes Cervical CA: No Dysfunctional Uterine Bleeding: No Ectopic : No Endometrial CA: No Polycystic Ovaries: No Therapeutic (s) & number: No Tubal Ligation: No - Immunization History Td Vaccination: No - Suicide/Smoking/Psychosocial Hx Smoking Status: No Smoking History: Never smoked Have you smoked in the past 12 months: No Number of Cigarettes Smoked Daily: 0 Hx Alcohol Use: No Drug/Substance Use Hx: No Substance Use Type: None Review of Systems - Review of Systems Comments:: General: No fevers, no chills, no weight or appetite change, no malaise HEENT: No changes in vision, no changes in hearing, no congestion, no sore throat CV: No chest pain, no palpitations, no LE edema Pulm: No SOB, no cough, no wheezing GI: No nausea or vomiting, no change in bowel habits, no melena : No frequency, no urgency, no dysuria Musc: No back pain, no joint swelling, no recent injury Skin: No rash, no lesions, no erythema Endo: No excessive thirst, no heat/cold intolerance Heme: No unusual bruising or bleeding, no swollen glands Neuro: No syncope, no numbness/tingling, no focal weakness Vasc: No claudication Psych: No recent change in mood, no SI or HI *Physical Exam - Vital Signs Last Vital Signs Temp Pulse Resp BP Pulse Ox 98.4 F 97 H 16 104/70 96 11/08/18 09:38 11/08/18 09:38 11/08/18 09:38 11/08/18 09:38 11/08/18 09:38 - Physical Exam Comments: General: Comfortable, no acute distress, obese HEENT: PERRL, EOMI, MMM, voice normal, normal neck ROM, no LAD Cards: RRR, no murmur appreciated Pulm: Comfortable on room air, clear to auscultation bilaterally Abd: Soft, nontender, nondistended : No CVA tenderness Pelvic exam with normal external genitalia, small condyloma on R labia. Small amount of dark red blood in vaginal canal. No cervical motion or adnexal tenderness. Os closed. Ext: Atraumatic. No LE edema. ROM intact. Strength 5/5 and equal bilaterally Vasc: Extremities WWP. Skin: Normal color, no rashes or lesions Neuro: A&Ox3, CN grossly intact, normal speech, motor/sensory grossly intact and symmetric Psych: Mood appropriate to situation, anxious Moderate Sedation - Procedure Monitoring Vital Signs: Procedure Monitoring Vital Signs Temperature 98.4 F 11/08/18 09:38 Pulse Rate 97 H 11/08/18 09:38 Respiratory Rate 16 11/08/18 09:38 Blood Pressure 104/70 11/08/18 09:38 O2 Sat by Pulse Oximetry (%) 96 11/08/18 09:38 ED Treatment Course - LABORATORY CBC & Chemistry Diagram: 11/08/18 11:00 11/08/18 11:00 - ADDITIONAL ORDERS Additional order review: Laboratory Results 11/08/18 10:13 Urine Color Ltyellow Urine Appearance Slcloudy Urine pH 6.0 Ur Specific [place] 1.011 Urine Protein Negative Urine Glucose (UA) Negative Urine Ketones Negative Urine Blood 3+ H Urine Nitrite Negative Urine Bilirubin Negative Urine Urobilinogen Negative Ur Leukocyte Esterase Negative Medical Decision Making - Medical Decision Making 11/08/18 11:38 Leticia Varghese is a 33yo woman at 8wks who presents with vaginal bleeding. - Pelvic exam w/ small amount of dark blood noted but os remains closed - Bedside US completed, difficult exam secondary to habitus. IUP noted, viewed gestational sac, but could not determine FHR or age. - CBC, CMP, bHCG, UA, UCx, type&screen - Official transvaginal US ordered 11/08/18 12:01 - Labs reviewed. No concerning abnormalities. bHCG pending - UA w/o sign of UTI - Patient at 11/08/18 12:26 - bHCG [id number], c/w reported gestational age - US completed. Reviewed. FHR 185, Gestational age 8w0d by two CRL measurements. Radiology read pending - Plan to d/c home with OB follow up pending radiology report 11/08/18 13:02 - Ultrasound read by radiology. Single live IUP - Discharge home Discussed with Dr Phan. Beverley Joyner PGY1 *DC/Admit/Observation/Transfer Diagnosis at time of Disposition: Vaginal bleeding in - Discharge Dispostion Disposition: HOME Condition at time of disposition: Stable Decision to Admit order: No - Referrals Referrals: Huber Matias MD [Primary Care Provider] - - Patient Instructions Printed Discharge Instructions: DI for Vaginal Bleeding During Additional Instructions: Discharge Instructions: You were seen in the emergency department for vaginal bleeding during your . You had blood tests and an ultrasound. The ultrasound showed a normal , uterine measuring 8weeks 0days. The heart rate was 185 beats/ minute. Vaginal bleeding can be normal and unconcerning in , but you should follow up with your resource teacher within the next week to make sure that everything continues to go well. Make sure you call them or return to the emergency room if your bleeding worsens significantly or if you develop abdominal and/or back cramping. You should also seek medical treatment at the nearest emergency room if you develop lightheadedness, severe bleeding, chest pain, or shortness of breath. - Post Discharge Activity
[2018-11-08 11:21] LABS: INR 1.01 (0.83-1.09); PROTHROMBIN TIME (PATIENT) 11.9 SEC (9.7-13.0)
[2018-11-08 11:23] LABS: EPI CELLS FEW /HPF (FEW); URINE BACTERIA RARE /hpf (NONE SEEN)
--- NOTE | 2018-11-08 11:35 | PDOC ---
Attending Attestation - Resident Resident Name: Beverley Joyner - ED Attending Attestation I have performed the following: I have examined & evaluated the patient, The case was reviewed & discussed with the resident, I agree w/resident's findings & plan - HPI HPI: 11/08/18 11:33 Halima 32 year old female, with a significant past medical history of Asthma, HLD, Diabetes (not on medications), Morbid obesity presenting with VB/spotting today, currently ~8 weeks. Last ultrasound 11/02/18, live IUP confirmed. Sees [facility] [place] [facility] for followup 11/08/18 11:34 - Physicial Exam PE: 11/08/18 11:34 NAD, well appearing, PERRL, EOMI, MMM, nl conjunctiva, anicteric; neck supple. lungs clear, RRR, abdomen soft nontender. STRAUSS x4. No peripheral edema. normal color for ethnicity, WWP. Pelvic exam performed by resident, os closed, no CMT/adnexal tenderness, some dark red blood in vaginal vault. - Medical Decision Making 11/08/18 11:34 See HPI for details DDx female: miscarriage, demise, subchorionic hematoma, UTI in in . Fibroid uterus, vaginitis, infection, electrolyte/metabolic derangements. doubt ectopic, has confirmed IUP by ultrasound 11/02/18 at [facility] Vital signs reviewed, wnl. Prior notes reviewed, including admissions, discharges and consultations. laboratory results and imaging reviewed, basic labs and lytes wnl, normal coags. UA_neg for infection, +blood present. f/u urine cultures. RH_O positive, no rhogam needed. beta hcg_50,000 appropriately elevated. ED course: no significant bleeding here and well appearing, abdomen soft NTND, vitals wnll bedside pelvic sono transabdominally with gestastional sac visualized, unable to delineate the FP/YS, given body habitus and limitations. no pelvic FF. TVUS_with live IUP at 8 weeks Dispo: Pt to be discharged in stable condition. Patient and family made aware of impression and plan, return precautions discussed (including but not limited to worsening pain or symptoms), fevers, or signs of infection, chest pain, respiratory distress, inability to tolerate oral intake, dehydration, syncope, or neurologic changes). Follow up with PMD and OB specialist as recommended, follow up information provided, take medications as instructed for duration of time. continue with supportive care, avoid triggers and precipitants. All questions answered to patient's satisfaction and expressed understanding and comfort with this. bleeding precautions provided and discussed, f/u PRIMO [place] 11/08/18 13:02
[2018-11-08 11:36] LABS: ALBUMIN 3.7 g/dl (3.4-5.0); ALK PHOS 78 U/L (45-117); ANION GAP 8 MMOL/L (8-16); BILIRUBIN,TOTAL 0.5 mg/dL (0.2-1); BLOOD UREA NITROGEN 10 mg/dL (7-18); CALCIUM 8.5 mg/dL (8.5-10.1); CHLORIDE 104 mmol/L (98-107); CO2 25 mmol/L (21-32); CREATININE 0.6 mg/dL (0.55-1.3); GLUCOSE,RANDOM 78 mg/dL (74-106); POTASSIUM 3.9 mmol/L (3.5-5.1); SGOT/AST 10 U/L (15-37); SGPT/ALT 25 U/L (13-61); SODIUM 137 mmol/L (136-145); TOT PROT 7.1 g/dl (6.4-8.2)
== END 2018-11-08 13:08 | disposition home or self-care (01) ==
LOC: JER 09:31
DX: O26.891 Other specified pregnancy related conditions, first trimester (principal); Z3A.09 9 weeks gestation of pregnancy; N93.9 Abnormal uterine and vaginal bleeding, unspecified
CPT/HCPCS: 36415; 76817-TC; 80053; 81003; 81015; 84702; 85025; 85610; 86850; 86900; 86901; 87086; 99281-25

== ENCOUNTER 2018-12-09 12:14 | Emergency (ER) | payer OTHER ==
[2018-12-09 12:19] VITALS: BP 117/73; PULSE 103; TEMP 98; BMI 47.6
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
== END 2018-12-09 13:48 | disposition home or self-care (01) ==
LOC: JER 12:14
DX: O26.891 Other specified pregnancy related conditions, first trimester (principal); R10.30 Lower abdominal pain, unspecified; Z3A.13 13 weeks gestation of pregnancy; V43.52XA Car driver injured in collision with other type car in traffic accident, initial encounter; Y92.414 Local residential or business street as the place of occurrence of the external cause; Y93.89 Activity, other specified; Y99.8 Other external cause status; O24.911 Unspecified diabetes mellitus in pregnancy, first trimester; Z79.84 Long term (current) use of oral hypoglycemic drugs
CPT/HCPCS: 76815; 99282-25

== ENCOUNTER 2019-06-10 06:40 | Inpatient (IN) | payer OTHER ==
[2019-06-10 08:04] VITALS: BMI 43.7
[2019-06-10] MEDS ORDERED: BUTORPHANOL TARTRATE 1 MG/ML VIAL IVPB ONE (08:29)
[2019-06-10] MEDS ORDERED: PROMETHAZINE HCL 25 MG/1 ML VIAL IVPUSH ONE (08:29)
[2019-06-10] MEDS ORDERED: ELECTROLYTE-148 SOLN 1,000 ML IV SCH (08:30)
[2019-06-10] MEDS ORDERED: BUTORPHANOL TARTRATE 2 MG/ML VIAL ONE (08:40)
[2019-06-10] MEDS ORDERED: PROMETHAZINE HCL 25 MG/1 ML VIAL ONE (08:40)
[2019-06-10] MEDS ORDERED: OXYTOCIN 30 UNITS in 0.9% NS 30 UNIT/500 ML INFUS.BAG IVPB ONE (08:40)
[2019-06-10 08:41] LABS: BASO % 0.4 % (0-2.0); EOS % 0.5 % (0-4.5); HEMATOCRIT 40.8 % (32.4-45.2); HEMOGLOBIN 13.7 GM/dL (10.7-15.3); LYMPH % 20.2 % (8-40); MCH 27.1 pg (25.7-33.7); MCHC 33.6 g/dl (32.0-36.0); MEAN CELL VOLUME 80.6 fl (80-96); NEUT % 72.9 % (42.8-82.8); PLATELET COUNT 228 K/MM3 (134-434); RBC 5.06 M/mm3 (3.60-5.2); RDW 14.9 % (11.6-15.6); WHITE BLOOD COUNT 9.2 K/mm3 (4.0-10.0)
--- NOTE | 2019-06-10 08:44 | HP ---
Past Medical History - Admission Chief Complaint: IOL for Pre-DM History of Present Illness: 33yo @ 39wks here for IOL for pre-DM. No VB/LOF. Irreg ctx. +FM. Preg c/b pregestational DM- on Metformin, anxiety/depression, obesity. History Source: Patient Limitations to Obtaining History: No Limitations - Past Medical History BAKERY CLERK: No: Alzheimer's, CVA, Dementia, Migraine, Multiple Sclerosis, Peripheral Neuropathy, Parkinson's, Seizure, Syncope, TIA, Vertigo, Other Pulmonary: No: Asthma, Bronchitis, Cancer, COPD, O2 Dependent, Pneumonia, Previously Intubated, Pulmonary Embolus, Pulmonary Fibrosis, Sleep Apnea, Other Hepatobiliary: No: Cirrhosis, Cholelithiasis, Cholecystitis, Choledocholithiasis , Hepatitis A, Hepatitis B, Hepatitis C, Other Renal/: No: Renal Failure, Renal Inusuff, BPH, Cancer, Hematuria, Hemodialysis , Neurogenic Bladder, Renal Calculi, UTI, Other Reproductive: No: Ectopic , Endometriosis, Fibroids, PID, Polycystic Ovary Syndrome, Postmenopausal, Other ...: 5 ...Para: 1 ...Term: 1 ...: 0 ...Spon : 0 ...Induced : 3 ...LMP: 09/07/19 ... Weeks Gestation by Dates: 39.3 ...EDC by Dates: 06/14/19 ...EDC by Sono: 06/14/19 Heme/Onc: Yes: Anemia Psych: Yes: Anxiety, Depression. No: Addictions, Bipolar, Panic, Psychosis, Schizophrenia, Other Musculoskeletal: No: Bursitis, Chronic low back pain, Hemiparesis, Hemiplegia, Osteoarthritis, Paraplegia, Other Rheumatology: No: Fibromyalgia, Gout, Lupus, Rheumatoid Arthritis, Sarcoidosis, Vasculitis, Other Endocrine: Yes: Diabetes Mellitus Dermatology: No: Basal Cell, Cellulitis, Eczema, Melanoma, Psoriasis, Squamous Cell, Other - Past Surgical History Past Surgical History: Yes: None Hx Myomectomy: No Hx Transabdominal Cerclage: No - Smoking History Smoking history: Never smoked Have you smoked in the past 12 months: No Aproximately how many cigarettes per day: 0 - Alcohol/Substance Use Hx Alcohol Use: No History of Substance Use: reports: None - Social History Usual Living Arrangement: Yes: With Spouse ADL: Independent History of Recent Travel: No Home Medications - Allergies Allergies/Adverse Reactions: Allergies Allergy/AdvReac Type Severity Reaction Status Date / Time amoxicillin Allergy Difficulty Verified 05/25/19 21:25 Breathing Penicillins Allergy Difficulty Verified 05/25/19 21:25 Breathing sertraline [From Zoloft] Allergy Hives Verified 05/25/19 21:25 Sulfa (Sulfonamide Allergy Difficulty Verified 05/25/19 21:25 Antibiotics) Breathing - Home Medications Home Medications: Ambulatory Orders No122/Iron/Folic Acid [ Multi Tablet] 1 each PO DAILY 11/08/18 metFORMIN HCL [Metformin HCl ER] 500 mg PO BID 11/08/18 Paroxetine HCl [Paxil] 10 mg PO DAILY 04/16/19 Review of Systems - Review of Systems Constitutional: denies: No Symptoms, Chills, Diaphoresis, Fever, Lethargy, Loss of Appetite, Malaise, Night Sweats, Unintentional Wgt. Loss, Weakness, Other Cardiovascular: denies: No Symptoms, Chest Pain, Edema, Palpitations, Shortness of Breath, Other Respiratory: denies: No Symptoms, Cough, Exercise Intolerance, Hemoptysis, Orthopnea, PND, Snoring, SOB, SOB on Exertion, Wheezing, Other Gastrointestinal: denies: No Symptoms, Abdominal Pain, Bloating, Constipation, Diarrhea, Dysphagia, Indigestion, Melena, Nausea, Rectal Bleeding, Vomiting, Vomiting Blood, Other Genitourinary: denies: No Symptoms, Burning, Discharge, Dysuria, Flank Pain, Frequency, Hematuria, Incontinence, Lesions, Menses, Pain, Testicular Mass, Testicular Pain, Testicular Swelling, Urgency, Vaginal Bleeding, Other Physical Exam - Maternity Vital Signs: Vital Signs Temperature 98.2 F 06/10/19 08:00 Pulse Rate 70 06/10/19 08:00 Respiratory Rate 18 06/10/19 08:00 Blood Pressure 114/69 06/10/19 08:00 O2 Sat by Pulse Oximetry (%) Constitutional: Yes: Well Nourished, No Distress, Calm - Abdominal Exam/OB Number of Fetuses: Single Presentation: Vertex Contractions: Yes Regularity: Irregular Intensity: Mild Monitor Mode: External Heart Rate Location: [facility] Category: I Accelerations: Non-Uniform Decelerations: None - Vaginal Exam/OB Vaginal Bleediing: No Dilatation (cm): 1 Effacement (%): 100 Amniotic Membrane Status: Intact Station: -3 - Physical Exam Edema: No Problem List - Problems (1) Diabetes mellitus affecting Code(s): O24.919 - UNSP DIABETES MELLITUS IN , UNSPECIFIED TRIMESTER Assessment/Plan 33yo @ 39+wks here for IOL for Type II DM Admit to L&D Admission labs Cat I tracing Giorn bulb, pitocin Stadol/Epidural Anticipate Yolis Carpenter MD
[2019-06-10 08:58] LABS: INR 0.97 (0.83-1.09); PROTHROMBIN TIME (PATIENT) 11.4 SEC (9.7-13.0)
[2019-06-10 09:01] LABS: ACTIVATED PTT 32.1 SECONDS (25.2-36.5)
[2019-06-10 09:04] LABS: BLOOD UREA NITROGEN 11.9 mg/dL (7-18); CALCIUM 8.7 mg/dL (8.5-10.1); CREATININE 0.6 mg/dL (0.55-1.3); POTASSIUM 4.1 mmol/L (3.5-5.1)
[2019-06-10] MEDS ORDERED: OXYTOCIN 30 UNITS in 0.9% NS 30 UNIT/500 ML INFUS.BAG IVPB SCH (09:45)
--- NOTE | 2019-06-10 10:26 | PN ---
Progress Note, Labor Vaginal Exam #1 Labor Exam Date: 06/10/19 Labor Exam Time: 10:24 Heart Rate (range): Cat I Dilatation: 4 Effacement (%): 100 Amniotic Membrane Status: Ruptured Presentation: Vertex/Position Station: -3 Remarks: Feeling increased pain Giron bulb out Now 4cm AROM, IUPC placed given difficulty tracing contractions 2/2 habitus While laying down during IUPC placement, FHT deceleration, variable down to 80's , with quick recovery Epidural now Anticipate BRINDA Carpenter MD
[2019-06-10] MEDS ORDERED: LIDO 2%/EPI 1:200000 PRESRVFRE (20 ML SDVIAL) ONE (10:31)
[2019-06-10] MEDS ORDERED: BUPIVACAINE HCL/PF 0.25% (2.5MG/ML) 10 ML VIAL ONE (10:31)
[2019-06-10] MEDS: FENTANYL/BUPIVACAINE/NS/PF - PCEA - 50 ML DISP.SYRIN EP SCH (10:50)
[2019-06-10] MEDS ORDERED: FENTANYL/BUPIVACAINE/NS/PF - PCEA - 50 ML DISP.SYRIN EP ONE (10:52)
[2019-06-10] MEDS ORDERED: NALOXONE HCL 0.4 MG/ML VIAL IVPUSH PRN (10:55)
--- NOTE | 2019-06-10 11:42 | PN ---
Progress Note, Labor Vaginal Exam #2 Labor Exam Date: 06/10/19 Labor Exam Time: 11:40 Heart Rate (range): Cat II Dilatation: 6 Effacement (%): 100 Amniotic Membrane Status: Ruptured Presentation: Vertex/Position Station: -3 Remarks: Comfortable after epidural Feeling vaginal pressure Now 6cm Cat II for intermittent variable decels, will reposition and cont to monitor Anticipate Sukumar Carpenter MD
[2019-06-10] MEDS ORDERED: OXYTOCIN 20 UNITS in 0.9% NS 20 UNIT/1,000 ML INFUS.BAG IV ONE (12:09)
[2019-06-10] MEDS ORDERED: WITCH HAZEL 50% (TUCKS) 40 PAD/JAR PAD TP PRN (12:31)
[2019-06-10] MEDS ORDERED: METHYLERGONOVINE MALEATE 0.2 MG/1 ML AMP IM PRN (12:31)
[2019-06-10] MEDS ORDERED: BENZOCAINE 28 GM HEMORRHOIDAL OINTMENT TP PRN (12:31)
[2019-06-10] MEDS ORDERED: BENZOCAINE 20% 57 GM BOTTLE TP PRN (12:31)
[2019-06-10] MEDS ORDERED: BISACODYL 10 MG SUPP.RECT RC PRN (12:31)
--- NOTE | 2019-06-10 12:31 | PN ---
Delivery - Delivery Vaginal Delivery: Spontaneous Type of Anesthesia: Epidural Episiotomy/Laceration: None EBL (cc): 200 Delivery, Single - Stages of Labor Placenta: Yes: Spontaneous - Condition of Medical Records Coder/Websphere Portal Developer Present: No Infant Gender: Male Position: Left, OA - 5 Minutes Total Score: 9 1 Minute Total Score: 9 - Leary Feeding Plan Initial Plan: Elected not to breastfeed exclusively throughout hospitalization Remarks - Remarks Remarks: of VMI from [place] over intact perineum. Epidural anesthesia. 39 week . Spontaneous delivery of anterior shoulder and body. placed on maternal abdomen. Cord clamped and cut. Weight pending. Apgars 9/9. Spontaneous delivery of intact placenta with 3VC. Fundus firm. Perineum inspected, no lacerations. Mother and baby doing well. Yolis Carpenter MD
[2019-06-10] MEDS ORDERED: OXYTOCIN 20 UNITS in 0.9% NS 20 UNIT/1,000 ML INFUS.BAG IV SCH (12:45)
[2019-06-10] MEDS: metFORMIN HCL 500 MG TABLET (FP) PO SCH (17:20)
[2019-06-10] MEDS: PARoxetine HCL 10 MG TABLET PO SCH (21:55)
[2019-06-11] MEDS: IBUPROFEN 600 MG TABLET (FP) PO PRN ×2 (01:36→21:48)
[2019-06-11] MEDS: ACETAMINOPHEN 325 MG TABLET (FP) PO PRN ×2 (01:36→21:47)
[2019-06-11] MEDS: metFORMIN HCL 500 MG TABLET (FP) PO SCH ×2 (08:26→18:24)
[2019-06-11 08:48] LABS: BASO % 0.5 % (0-2.0); EOS % 2.3 % (0-4.5); HEMATOCRIT 38.1 % (32.4-45.2); HEMOGLOBIN 12.9 GM/dL (10.7-15.3); LYMPH % 20.9 % (8-40); MCHC 33.8 g/dl (32.0-36.0); MEAN PLT VOLUME 8.7 fl (7.5-11.1); MONO % 6.6 % (3.8-10.2); NEUT % 69.7 % (42.8-82.8); PLATELET COUNT 224 K/MM3 (134-434); RBC 4.76 M/mm3 (3.60-5.2); RDW 14.9 % (11.6-15.6); WHITE BLOOD COUNT 10.6 K/mm3 (4.0-10.0)
[2019-06-11] MEDS: PRENATAL VITAMINS W/ FOLIC ACID TABLET (FP) PO SCH (08:59)
--- NOTE | 2019-06-11 09:58 | PN ---
Post Progress Note - Subjective Subjective: 33 yo Para 2 status post vaginal delivery, seen and evaluated. Doing well. Post Day: 1 Type of Delivery: Vital Signs: Vital Signs Temperature 97.7 F 06/11/19 07:40 Pulse Rate 72 06/11/19 07:40 Respiratory Rate 18 06/11/19 07:40 Blood Pressure 113/67 06/11/19 07:40 O2 Sat by Pulse Oximetry (%) 100 06/10/19 13:05 Breast Exam: Yes: Soft Uterus: Yes: Fundus Firm Abdomen/GI: Yes: Abdomen soft, Tolerating PO Lochia: Yes: Rubra Lochia, amount: Moderate Extremities: Yes: Calves non-tender Activity: Ambulating - Labs Labs: CBC WBC 9.2 K/mm3 (4.0-10.0) 06/10/19 08:10 RBC 5.06 M/mm3 (3.60-5.2) 06/10/19 08:10 Hgb 13.7 GM/dL (10.7-15.3) 06/10/19 08:10 Hct 40.8 % (32.4-45.2) 06/10/19 08:10 MCV 80.6 fl (80-96) 06/10/19 08:10 MCH 27.1 pg (25.7-33.7) 06/10/19 08:10 MCHC 33.6 g/dl (32.0-36.0) 06/10/19 08:10 RDW 14.9 % (11.6-15.6) 06/10/19 08:10 Plt Count 228 K/MM3 (134-434) D 06/10/19 08:10 MPV 9.0 fl (7.5-11.1) D 06/10/19 08:10 Absolute Neuts (auto) 6.7 K/mm3 (1.5-8.0) 06/10/19 08:10 Neutrophils % 72.9 % (42.8-82.8) 06/10/19 08:10 Lymphocytes % 20.2 % (8-40) 06/10/19 08:10 Monocytes % 6.0 % (3.8-10.2) 06/10/19 08:10 Eosinophils % 0.5 % (0-4.5) 06/10/19 08:10 Basophils % 0.4 % (0-2.0) 06/10/19 08:10 Nucleated RBC % 0 % (0-0) 06/10/19 08:10 Problem List - Problems (1) Status post normal vaginal delivery Code(s): [id number] - Assessment/Plan Status post normal vaginal delivery Stable Continue routine care
[2019-06-11] MEDS: PARoxetine HCL 10 MG TABLET PO SCH (10:00)
[2019-06-11] MEDS ORDERED: PARoxetine HCL 10 MG TABLET PO SCH ×2 (10:00→21:00)
[2019-06-11] MEDS ORDERED: SENNOSIDES/DOCUSATE COMBO (SENNA PLUS) TABLET (UD) PO PRN (22:00)
[2019-06-12] MEDS: FENTANYL/BUPIVACAINE/NS/PF - PCEA - 50 ML DISP.SYRIN EP SCH (07:16)
[2019-06-12] MEDS: metFORMIN HCL 500 MG TABLET (FP) PO SCH (08:28)
--- NOTE | 2019-06-12 08:31 | DS ---
Physical Examination Vital Signs: Vital Signs Temperature 97.4 F L 06/11/19 21:22 Pulse Rate 75 06/11/19 21:22 Respiratory Rate 18 06/11/19 21:22 Blood Pressure 124/84 06/11/19 21:22 O2 Sat by Pulse Oximetry (%) 100 06/10/19 13:05 Findings/Remarks: patient is a bit anxious due to the afct that the baby fell down yesterday HENT: Yes: Atraumatic Neck: Yes: Supple Cardiovascular: Yes: Regular Rate and Rhythm Gastrointestinal: Yes: Soft ...Rectal Exam: Yes: WNL Renal/: Yes: WNL Musculoskeletal: Yes: WNL Extremities: Yes: WNL Edema: Yes Edema: LLE: Trace, RLE: Trace Integumentary: Yes: WNL Wound/Incision: Yes: Well Approximated Neurological: Yes: Alert, Oriented ...Motor Strength: WNL Psychiatric: Yes: Alert, Oriented Labs: CBC, BMP 06/11/19 08:07 06/10/19 08:10 Discharge Summary Reason For Visit: INDUCTION OF LABOR Current Active Problems Diabetes mellitus affecting (Acute) Status post normal vaginal delivery (Acute) DM and anxiety Procedures: Principal: Hospital Course: Uncomplicated induction and VD. Hospital course complicated by fall on PPD # 1. Patient reports feeling anxious and desires to go home. She denies any suicidal/homocidal ideations. She was instructed to present to health center within a week. Warning/precautions sings and symptoms discussed. Condition: Stable - Instructions Diet, Activity, Other Instructions: regular diet. Continue home meds. Follow up as instructed. Contact MD or seek medical attention as indicated. Referrals: Yolis Carpenter MD [Staff Physician] - Disposition: AGAINST MEDICAL ADVICE - Home Medications Comprehensive Discharge Medication List: Ambulatory Orders No122/Iron/Folic Acid [ Multi Tablet] 1 each PO DAILY 11/08/18 metFORMIN HCL [Metformin HCl ER] 500 mg PO BID 11/08/18 Paroxetine HCl [Paxil] 10 mg PO DAILY 04/16/19 Ibuprofen 600 mg PO Q6H PRN #30 tablet 06/11/19
[2019-06-12 08:55] VITALS: BP 144/88; PULSE 81; TEMP 98.7
[2019-06-12] MEDS: PRENATAL VITAMINS W/ FOLIC ACID TABLET (FP) PO SCH (10:08)
== END 2019-06-12 12:25 | disposition home or self-care (01) | DRG 560 ==
LOC: JLDR 06:40 → J3W 14:15
PROVIDERS: ADMIT Obstetrics & Gynecology; ATTEND Obstetrics & Gynecology
PROC: 10E0XZZ Delivery of Products of Conception, External Approach (ICD-10-PCS; principal; 2019-06-10)
DX: O24.429 Gestational diabetes mellitus in childbirth, unspecified control (principal); O99.344 Other mental disorders complicating childbirth; F41.8 Other specified anxiety disorders; O99.214 Obesity complicating childbirth; Z3A.39 39 weeks gestation of pregnancy; Z37.0 Single live birth
CPT/HCPCS: 36415; 59409; 80048; 82962; 85025; 85610; 85730; 86593; 86850; 86900; 86901